=== PATIENT | male | born 2000 ===

== ENCOUNTER 2018-02-19 00:19 | Emergency (ER) | payer OTHER ==
[2018-02-19 00:50] VITALS: PULSE 93; RESP 19; TEMP 97.9; O2SAT 100
[2018-02-19] MEDS ORDERED: Silver Sulfadiazine 1% CREAM (50 gm) TOP STA (01:23)
[2018-02-19] MEDS ORDERED: Tdap Vaccine 0.5 ml Vial (10-64 yrs) IM ONE ×2 (01:23→01:43)
--- NOTE | 2018-02-19 01:26 | ED PDOC ---
Upper Extremity Pain/Injury Time Seen by Provider: 02/19/18 01:24 Chief Complaint (Nursing): Upper Extremity Problem/Injury Chief Complaint (Provider): right hand burn History Per: Patient (17 y/o male here with right hand injury one week ago when he spilt hot oil on right hand at work. States he did not get evaluated originally but now notes skin sloughing off and crusting over wound. Unsure of tetanus vaccine. Denies any fevers/chills.) Past Medical History Reviewed: Historical Data, Nursing Documentation, Vital Signs Vital Signs: Last Vital Signs Temp 97.9 F 02/19/18 00:47 Pulse 93 H 02/19/18 00:47 Resp 19 02/19/18 00:47 BP Pulse Ox 100 02/19/18 00:47 - Family History Family History: States: No Known Family Hx - Home Medications Home Medications: Ambulatory Orders Medication Instructions Recorded Cephalexin [Keflex] 500 mg PO TID #21 capsule 02/19/18 Silver Sulfadiazine 1% 20 gm 0.5 gm TOP BID #1 tube 02/19/18 [Silvadene 1% 20 gm] - Allergies Allergies/Adverse Reactions: Allergies Allergy/AdvReac Type Severity Reaction Status Date / Time No Known Allergies Allergy Verified 02/19/18 01:23 Review of Systems ROS Statement: Except As Marked, All Systems Reviewed And Found Negative Skin: Positive for: Other (burn) Physical Exam - Reviewed Nursing Documentation Reviewed: Yes Vital Signs Reviewed: Yes - Physical Exam Appears: Positive for: Well, Non-toxic, No Acute Distress Head Exam: Positive for: ATRAUMATIC, NORMAL INSPECTION, NORMOCEPHALIC Skin: Positive for: Normal Color, Warm, Rash (partial thickness burn noted healing along dorsum of hand involving third and fourth digit a well. blisters noted with crusting over dorsum of hand. No erythema noted. Patient able to flex and extend digits. No loss of sensation.) Eye Exam: Positive for: EOMI, Normal appearance, PERRL ENT: Positive for: Normal ENT Inspection Neck: Positive for: Normal, Painless ROM Cardiovascular/Chest: Positive for: Regular Rate, Rhythm Respiratory: Positive for: CNT, Normal Breath Sounds Gastrointestinal/Abdominal: Positive for: Normal Exam, Soft Back: Positive for: Normal Inspection Extremity: Positive for: Normal ROM Neurologic/Psych: Positive for: Alert, Oriented - ECG O2 Sat by Pulse Oximetry: 100 - Progress ED Course And Treament: Tdap 0.5 ml IM x 1 dose Silvadene 0.5 gm applied to right hand wound. Disposition - Clinical Impression Clinical Impression: Partial thickness burn of right hand including fingers - Patient ED Disposition Is Patient to be Admitted: No - Disposition Disposition: Routine/Home Disposition Time: 01:28 Condition: FAIR Additional Instructions: PLEASE CALL [facility] FOR FOLLOW UP APPOINTMENT. [facility] [phone] [place] [address] Prescriptions: Cephalexin [Keflex] 500 mg PO TID #21 capsule Silver Sulfadiazine 1% 20 gm [Silvadene 1% 20 gm] 0.5 gm TOP BID #1 tube Instructions: Skin [place] (DC) Forms: [facility] ED School/Work Excuse
[2018-02-19] MEDS ORDERED: Silver Sulfadiazine 1% CREAM (50 gm) ONE (01:43)
[2018-02-19 02:01] VITALS: BP 140/87
== END 2018-02-19 02:07 | disposition home or self-care (01) ==
LOC: H.ER 00:19
DX: T23.201A Burn of second degree of right hand, unspecified site, initial encounter (principal); X10.2XXA Contact with fats and cooking oils, initial encounter; Y99.0 Civilian activity done for income or pay